=== PATIENT | male | born 1970 | race Caucasian/White ===

== ENCOUNTER 2017-01-03 10:31 | Emergency (ER) | payer OTHER ==
[2017-01-03 10:36] VITALS: RESP 16
[2017-01-03] MEDS ORDERED: ASPIRIN 81 MG PO STA (11:06)
[2017-01-03] MEDS ORDERED: NITROGLYCERIN OINT 1 INCH/GM PACKET TOPICAL STA (11:06)
--- NOTE | 2017-01-03 11:08 | ED ---
General Adult HPI - General Chief complaint: Chest Pain Stated complaint: Chest Pain Time Seen by Provider: 01/03/17 10:55 Source: patient, RN notes reviewed Mode of arrival: wheelchair Limitations: no limitations - History of Present Illness Initial comments: Patient is a pleasant 46-year-old male presenting to the emergency department chest discomfort. Onset was last night. Symptoms have been mostly constant however have started to improve his morning. Patient has soreness in his chest with radiation to left arm. Patient felt slightly short of breath and nauseated earlier. No diaphoresis. No history of similar symptoms previously. Onset was while at rest. - Related Data Home Medications Medication Instructions Recorded Confirmed Aspirin EC [Ecotrin] 325 mg PO ONCE PRN 01/03/17 01/03/17 Cyclobenzaprine [Flexeril] 10 mg PO TID PRN 01/03/17 01/03/17 Allergies Allergy/AdvReac Type Severity Reaction Status Date / Time No Known Allergies Allergy Verified 01/03/17 10:41 Review of Systems ROS Statement: Those systems with pertinent positive or pertinent negative responses have been documented in the HPI. ROS Other: All systems not noted in ROS Statement are negative. Constitutional: Denies: fever Eyes: Denies: eye pain ENT: Denies: ear pain Respiratory: Reports: dyspnea. Denies: cough Cardiovascular: Reports: chest pain Endocrine: Denies: fatigue Gastrointestinal: Reports: nausea. Denies: abdominal pain Genitourinary: Denies: dysuria Musculoskeletal: Denies: back pain Skin: Denies: rash Neurological: Denies: weakness Past Medical History Additional Past Medical History / Comment(s): lower back pain History of Any Multi-Drug Resistant Organisms: None Reported Past Surgical History: Orthopedic Surgery Additional Past Surgical History / Comment(s): right knee Past Psychological History: No Psychological Hx Reported Smoking Status: Current every day smoker Past Alcohol Use History: Rare Past Drug Use History: Marijuana General Exam Limitations: no limitations General appearance: alert, in no apparent distress Head exam: Present: atraumatic Eye exam: Present: normal appearance, PERRL ENT exam: Present: normal oropharynx Neck exam: Present: normal inspection Respiratory exam: Present: normal lung sounds bilaterally, chest wall tenderness (Mild left sternal border) Cardiovascular Exam: Present: regular rate, normal rhythm Expanded Peripheral pulses: 2+: Radial (R), Radial (L), Dorsalis Pedis (R), Dorsalis Pedis (L) GI/Abdominal exam: Present: soft. Absent: tenderness Extremities exam: Present: normal inspection. Absent: pedal edema, calf tenderness Neurological exam: Present: alert Psychiatric exam: Present: normal affect, normal mood Skin exam: Present: normal color Course Vital Signs 01/03/17 01/03/17 10:33 11:17 Temperature 97.4 F L Pulse Rate 73 Respiratory 16 16 Rate Blood Pressure 148/75 O2 Sat by Pulse 99 Oximetry EKG Findings - EKG Comments: EKG Findings:: Since bradycardia 58. MO 122. QRS 90. QT 410. QTc 402. Normal axis. Normal QRS. No acute ST change. Medical Decision Making - Medical Decision Making Patient reevaluated and resting comfortably in bed. Patient without complaints at this time. Patient updated on results and plan. Patient advised admission however refuses. Patient is made aware that heart attack has not been ruled out and could be at risk in the near future. Patient was recommended admission for further evaluation and consultation. Patient does demonstrate medical decision making and will leave AGAINST MEDICAL ADVICE. - Lab Data Result diagrams: 01/03/17 11:09 01/03/17 11:09 Lab Results 01/03/17 01/03/17 01/03/17 Range/Units 11:09 11:09 11:09 WBC 6.5 (3.8-10.6) k/uL RBC 4.83 (4.30-5.90) m/uL Hgb 15.5 (13.0-17.5) gm/dL Hct 48.6 (39.0-53.0) % MCV 100.5 H (80.0-100.0) fL MCH 32.0 (25.0-35.0) pg MCHC 31.9 (31.0-37.0) g/dL RDW 15.4 (11.5-15.5) % Plt Count 202 (150-450) k/uL Neutrophils % 60 % Lymphocytes % 30 % Monocytes % 5 % Eosinophils % 3 % Basophils % 1 % Neutrophils # 3.9 (1.3-7.7) k/uL Lymphocytes # 1.9 (1.0-4.8) k/uL Monocytes # 0.3 (0-1.0) k/uL Eosinophils # 0.2 (0-0.7) k/uL Basophils # 0.0 (0-0.2) k/uL Macrocytosis Slight PT (9.0-12.0) sec INR (<1.2) APTT (22.0-30.0) sec D-Dimer (<0.60) mg/L FEU Sodium 140 (137-145) mmol/L Potassium 4.4 (3.5-5.1) mmol/L Chloride 106 (98-107) mmol/L Carbon Dioxide 26 (22-30) mmol/L Anion Gap 8 mmol/L BUN 14 (9-20) mg/dL Creatinine 0.92 (0.66-1.25) mg/dL Est GFR (MDRD) Af Amer >60 (>60 ml/min/1.73 sqM) Est GFR (MDRD) Non-Af >60 (>60 ml/min/1.73 sqM) Glucose 101 H (74-99) mg/dL Calcium 9.7 (8.4-10.2) mg/dL Magnesium 1.7 (1.6-2.3) mg/dL Total Bilirubin 0.5 (0.2-1.3) mg/dL AST 18 (17-59) U/L ALT 28 (21-72) U/L Alkaline Phosphatase 69 (38-126) U/L Total Creatine Kinase 73 (55-170) U/L CK-MB (CK-2) 1.1 (0.0-2.4) ng/mL CK-MB (CK-2) Rel Index 1.5 Troponin I <0.012 (0.000-0.034) ng/mL Total Protein 6.7 (6.3-8.2) g/dL Albumin 4.3 (3.5-5.0) g/dL 01/03/17 Range/Units 11:09 WBC (3.8-10.6) k/uL RBC (4.30-5.90) m/uL Hgb (13.0-17.5) gm/dL Hct (39.0-53.0) % MCV (80.0-100.0) fL MCH (25.0-35.0) pg MCHC (31.0-37.0) g/dL RDW (11.5-15.5) % Plt Count (150-450) k/uL Neutrophils % % Lymphocytes % % Monocytes % % Eosinophils % % Basophils % % Neutrophils # (1.3-7.7) k/uL Lymphocytes # (1.0-4.8) k/uL Monocytes # (0-1.0) k/uL Eosinophils # (0-0.7) k/uL Basophils # (0-0.2) k/uL Macrocytosis PT 10.6 (9.0-12.0) sec INR 1.1 (<1.2) APTT 25.9 (22.0-30.0) sec D-Dimer <0.17 (<0.60) mg/L FEU Sodium (137-145) mmol/L Potassium (3.5-5.1) mmol/L Chloride (98-107) mmol/L Carbon Dioxide (22-30) mmol/L Anion Gap mmol/L BUN (9-20) mg/dL Creatinine (0.66-1.25) mg/dL Est GFR (MDRD) Af Amer (>60 ml/min/1.73 sqM) Est GFR (MDRD) Non-Af (>60 ml/min/1.73 sqM) Glucose (74-99) mg/dL Calcium (8.4-10.2) mg/dL Magnesium (1.6-2.3) mg/dL Total Bilirubin (0.2-1.3) mg/dL AST (17-59) U/L ALT (21-72) U/L Alkaline Phosphatase (38-126) U/L Total Creatine Kinase (55-170) U/L CK-MB (CK-2) (0.0-2.4) ng/mL CK-MB (CK-2) Rel Index Troponin I (0.000-0.034) ng/mL Total Protein (6.3-8.2) g/dL Albumin (3.5-5.0) g/dL - Radiology Data Radiology results: image reviewed (Chest x-ray shows no acute process.) Disposition Clinical Impression: Chest pain Disposition: Left Against Medical Advice Condition: Stable Instructions: Chest Pain (ED) Additional Instructions: Aspirin daily until follow-up. Please follow-up to primary care physician in the next day or 2 for reevaluation. Have primary care physician consider stress testing or cardiology evaluation. Return for increased pain, difficult in breathing, worsening or changing symptoms or other concerns. Referrals: Fabien Mendieta DO [Primary Care Provider] - 1-2 days Time of Disposition: 12:53
[2017-01-03 11:25] LABS: Basophils % (A) 1 %; CH 34.4; CHCM 34.5; Eosinophils # (A) 0.2 k/uL (0-0.7); Eosinophils % (A) 3 %; HCT 48.6 % (39.0-53.0); HDW 2.38; HGB 15.5 gm/dL (13.0-17.5); Luc # (Auto) 0.07; Luc % (Auto) 1; Lymphocytes # (A) 1.9 k/uL (1.0-4.8); Lymphocytes % (A) 30 %; MCHC 31.9 g/dL (31.0-37.0); MCV 100.5 fL (80.0-100.0); Macrocytosis Slight; Mean Platelet Volume 7.6; Monocytes # (A) 0.3 k/uL (0-1.0); Monocytes % (A) 5 %; Neutrophils # (A) 3.9 k/uL (1.3-7.7); Neutrophils % (A) 60 %; RBC 4.83 m/uL (4.30-5.90); RDW 15.4 % (11.5-15.5); WBC 6.5 k/uL (3.8-10.6); WBC (Perox) 6.38
[2017-01-03 11:36] LABS: ALT 28 U/L (21-72); AST 18 U/L (17-59); Alkaline Phosphatase 69 U/L (38-126); Anion Gap 8 mmol/L; Blood Urea Nitrogen 14 mg/dL (9-20); Calcium 9.7 mg/dL (8.4-10.2); Carbon Dioxide 26 mmol/L (22-30); Chloride 106 mmol/L (98-107); Glucose 101 mg/dL (74-99); Magnesium 1.7 mg/dL (1.6-2.3); Non-African American GFR(MDRD) >60 (>60 ml/min/1.73 sqM); Potassium 4.4 mmol/L (3.5-5.1); Sodium 140 mmol/L (137-145); Total Bilirubin 0.5 mg/dL (0.2-1.3); Total Protein 6.7 g/dL (6.3-8.2)
[2017-01-03 11:48] LABS: Creatine Kinase 73 U/L (55-170)
[2017-01-03 12:01] LABS: Creatine Kinase MB 1.1 ng/mL (0.0-2.4); Troponin I <0.012 ng/mL (0.000-0.034)
--- NOTE | 2017-01-03 12:04 | XR ---
EXAMINATION TYPE: XR chest 2V DATE OF EXAM: 01/03/2017 COMPARISON: NONE HISTORY: Chest pain and shortness of breath. TECHNIQUE: Frontal and lateral views of the chest are obtained. FINDINGS: Underlying emphysematous change is felt present. There is no focal air space opacity, pleu ral effusion, or pneumothorax seen. The cardiac silhouette size is within normal limits. The osseo us structures are intact. IMPRESSION: Suspect chronic emphysematous change without acute pulmonary process.
[2017-01-03 12:08] LABS: INR 1.1 (<1.2); Partial Thromboplastin Time 25.9 sec (22.0-30.0); Prothrombin Time 10.6 sec (9.0-12.0)
[2017-01-03 13:10] VITALS: BP 107/81; PULSE 60; TEMP 98.4
== END 2017-01-03 13:11 | disposition left against medical advice (07) ==
LOC: EC 10:31
DX: R07.89 Other chest pain (principal); R06.02 Shortness of breath; R11.0 Nausea; F17.200 Nicotine dependence, unspecified, uncomplicated; Z53.29 Procedure and treatment not carried out because of patient's decision for other reasons
CPT/HCPCS: 36415; 71020; 80053; 82550; 82553; 83735; 84484; 85025; 85379; 85610; 85730; 93005; 99285

== ENCOUNTER 2017-12-24 04:00 | Emergency (ER) | payer OTHER ==
[2017-12-24 04:10] VITALS: BP 124/62; PULSE 92; RESP 20; TEMP 97.4
--- NOTE | 2017-12-24 04:22 | ED ---
Back Pain HPI - General Chief Complaint: Back Pain/Injury Stated Complaint: Back Pain Time Seen by Provider: 12/24/17 04:21 Source: patient, family Limitations: no limitations - History of Present Illness Initial Comments: Javon is a 47-year-old male with a history of chronic back pain who is currently be following by neurosurgery for an L4-L5 bulging disc. Patient reports that he just saw the neurosurgeon last week in his posterior call Monday for planned surgery. Patient states that today was his birthday, he got up early and work, he then had a birthday green party. Patient states that he has overexerted himself and is experiencing a severe muscle spasm from his left ribs down to his left lumbar spine. Patient reports she's experienced a significant past and just needs some pain medications for. Patient denies any recent trauma, recent injury, he denies any history of cancers, denies any history of IV drug use, denies any fevers or chills, denies any focal neurologic deficits, denies any weakness in his lower surety's, denies any bowel or bladder incontinence or retention. Patient reports that the pain started approximately half hour prior to arrival in the ER. He reports he felt like his entire body locked up so his friend put him in the bed of his truck and drove him to the ER for evaluation. The patient admits that he was drinking alcohol earlier in the evening. - Related Data Home Medications Medication Instructions Recorded Confirmed Aspirin EC [Ecotrin] 325 mg PO ONCE PRN 01/03/17 12/24/17 Cyclobenzaprine [Flexeril] 10 mg PO TID PRN 01/03/17 12/24/17 Gabapentin [Neurontin] 300 mg PO TID 12/24/17 12/24/17 Naproxen [Naprosyn] 250 mg PO BID 12/24/17 12/24/17 Allergies Allergy/AdvReac Type Severity Reaction Status Date / Time No Known Allergies Allergy Verified 12/24/17 04:10 Review of Systems ROS Statement: Those systems with pertinent positive or pertinent negative responses have been documented in the HPI. ROS Other: All systems not noted in ROS Statement are negative. Past Medical History Additional Past Medical History / Comment(s): lower back pain History of Any Multi-Drug Resistant Organisms: None Reported Past Surgical History: Orthopedic Surgery Additional Past Surgical History / Comment(s): right knee Past Psychological History: No Psychological Hx Reported Smoking Status: Current every day smoker Past Alcohol Use History: Rare Past Drug Use History: Marijuana General Exam - General Exam Comments Initial Comments: Physical Exam GENERAL: Disheveled, male, appears older than stated age Patient has his shirt removed from one arm and his back is exposed, he standing at the bedside with his cigarettes on the bed, hands on the bed in a bent over position HENT: Normocephalic, Atraumatic. EYES: PERRL, EOMI PULMONARY: Unlabored respirations. CARDIOVASCULAR: RRR ABDOMEN: Nondistended SKIN: Skin is clear with no lesions or rashes and otherwise unremarkable. : Deferred NEUROLOGIC: Patient is alert and oriented x3. Moving all extremities spontaneously Normal gait MUSCULOSKELETAL: Normal extremities with full range of motion. PSYCHIATRIC: Intoxicated, agitated Limitations: no limitations Limitations: no limitations Course Vital Signs 12/24/17 04:01 Temperature 97.4 F L Pulse Rate 92 Respiratory 20 Rate Blood Pressure 124/62 O2 Sat by Pulse 97 Oximetry Medical Decision Making - Medical Decision Making The patient was seen and evaluated, history was obtained from the patient Patient was standing in the room, upon my entry patient states that he is in severe pain and needs something for the pain, I advised the patient that I understand he is in pain but he needed to answer some questions prior to getting medications Patient admitted to drinking alcohol, was somewhat agitated, states that he overexerted himself and is having a significant muscle spasm No red flags for back pain Repeatedly interrupting me reports requesting medications for his back pain during the interview. I repeatedly advised the patient that I cannot leave the room to order an pain medications until I determine if there is further workup indicated Advised the patient that I'll give him shots of muscle relaxer and anti- inflammatories, patient became agitated behaving cursing at me. Patient began putting on a shirt and stating that he is "glad people here understand everything that people are going to run a daily basis" and expressed frustration that I do not understand what he was experiencing. I advised the patient that I was ordering him appropriate treatment the patient was agitated and walked out of the emergency department Disposition Clinical Impression: Strain of lumbar region Disposition: Left Against Medical Advice Instructions: Acute Low Back Pain (ED) Is patient prescribed a controlled substance at d/c from ED?: No Referrals: Fabien Mendieta DO [Primary Care Provider] - 1-2 days
== END 2017-12-24 04:50 | disposition left against medical advice (07) ==
LOC: EC 04:00
DX: S39.012A Strain of muscle, fascia and tendon of lower back, initial encounter (principal); F17.200 Nicotine dependence, unspecified, uncomplicated; Z79.1 Long term (current) use of non-steroidal anti-inflammatories (NSAID); Z79.899 Other long term (current) drug therapy; Z98.890 Other specified postprocedural states; X50.9XXA Other and unspecified overexertion or strenuous movements or postures, initial encounter
CPT/HCPCS: 99282

== ENCOUNTER → 2020-07-30 | Outpatient (CLI) | payer OTHER ==
--- NOTE | 2020-07-30 14:37 | XR ---
Cervical spine HISTORY: Degenerative disc disease, pain 4 views of the cervical spine Cervical vertebral bodies show near anatomic alignment, is loss of disc height at C5-6. Cervical vert ebral bodies show preserved height and bone mineralization. Prevertebral soft tissues are normal. No significant foraminal encroachment. Some mild facet arthropathy changes present. IMPRESSION: Degenerative disc disease.
--- NOTE | 2020-07-30 14:41 | XR ---
Lumbosacral spine HISTORY: Degenerative disc disease, pain 5 views of lumbosacral spine, no comparisons Patient is status post posterior lumbar fusion at L4-5 with intervertebral spacing block. Lumbar vert ebral bodies show preserved height and alignment. There is multilevel spondylosis. Loss of disc heigh t is present L5-S1, L1 to. Sclerosis in the posterior elements is consistent with facet arthropathy. There is no evident spondylolysis. IMPRESSION: Postop changes, degenerative disc disease and facet arthropathy.
--- NOTE | 2020-07-30 14:44 | XR ---
Thoracic spine HISTORY: Chronic pain views of the thoracic spine correlated to cervical and lumbar spine same date There is a slight spinal curvature. There is multilevel spondylosis. Loss of disc height is present a t intervertebral levels of the midthoracic spine. Lumbar vertebral bodies show preserved height and m ineralization. IMPRESSION: Degenerative disc disease, slight spinal curvature.
== END | disposition home or self-care (01) ==
LOC: RADXRYALE 11:26
PROVIDERS: ATTEND Physician Assistant
DX: M51.34 Other intervertebral disc degeneration, thoracic region (principal); M43.8X4 Other specified deforming dorsopathies, thoracic region; M50.30 Other cervical disc degeneration, unspecified cervical region; M51.36 Other intervertebral disc degeneration, lumbar region; M47.816 Spondylosis without myelopathy or radiculopathy, lumbar region
CPT/HCPCS: 72050; 72070; 72110

== ENCOUNTER → 2021-12-01 | Outpatient (CLI) | payer OTHER ==
[2021-12-01 09:28] VITALS: BP 118/73; PULSE 69; RESP 18
--- NOTE | 2021-12-01 15:10 | P.PAINPG ---
PQRS Measure Charge Sheet Comment: HISTORY OF PRESENT ILLNESS: 50 yr old male as a referral from Dr. Grey presents today w severe and chronic LBP secondary to for evaluation. Pt states his pain level is currently at 5/10 in intensity, constant, localized in lower lumbar spine, burning/achy in character w radiation towards BLEs. Pain is provoked w PT x 6 wks in 2021 which provoked pain, topicals are ineffective, activities provoke pain. Pain is palliated w massage integrated w PT, heat, home exercise regimen, +cannabis, repositioning and rest. PMH: OA PSH: R Knee Arthroscopy, L4-5 posterior fusion SH: Daily tobacco use, No ETOH abuse, +Cannabis use. FH: Non contributory All: NKDA Meds: See list REVIEW OF ORGAN SYSTEMS: CONSTITUTIONAL: No fevers or chills. No recent weight loss. NEUROLOGICAL: + numbness and tingling along the distal extremities. No seizure disorders or headaches. MUSCULOSKELETAL: + pain PSYCHIATRIC: Denies current depression or suicidal thoughts. Physical Examinations : Constitutional : Cooperative , not in acute distress . Neurologic : Cranial nerve II to XII intact. No focal neurological deficits. Psychiatric : alert & oriented x 3. Matching mood & appropriate affect. Judgment & insight intact. Musculoskeletal : Cervical Spine Motor strength in the deltoid and biceps: Normal right side. Normal Left side Motor strength biceps and the wrist extensors: Normal right side . Normal left side Motor strength in the triceps muscle: Normal right side. Normal left side Deep tendon reflexes: Normal at the biceps. Normal at Brachioradialis. Normal at triceps Vertebral body tenderness to deep palpation over Cervical facet loading test: positive bilaterally Spurling test: positive bilaterally Neck distraction test: positive bilaterally Segun sign: positive bilaterally Lumbar spine Motor strength lower extremities ,thigh and legs 5/5 Right side , 5/5 Left side Deep tendon reflexes : Normal Knee Jerk. Normal Ankle Jerk Vertebral body tenderness over L5 Lumbar facet Loading Test: positive Right / positive Left Range of motion of the lumbar spine Flexion 30 degrees, extension 10 degrees Straight Leg Raise test: Left/ Right positive at degree Dolores test: positive right / positive left. Severe tenderness over the Sacroiliac joint on the Right / Left sides Gaenslen test: positive bilaterally Seated flexion test: positive bilaterally. Sacral spine : Severe tenderness over the Sacroiliac joint: right side / left side Range of motion: Flexion of the lumbar spine <60 degrees Range of motion: Extension of the lumbar spine <20 degrees Gaenslen's Test positive Abraham's Test positive Dolores test: positive right side / left side Thigh Thrust Test Sacral Thrust Test Imaging: MRI of the lumbar spine from 11/05/20 reviewed Assessment/ Plan : Lumbar DDD, lumbar spondylosis Recommendation of WAGNER L5-S1. May need a series of injections, up to 3 within a 6 mo period, for optimal pain relief. Risks, benefits of procedure discussed and patient verbalized understanding. Denies aspirin or anti- coagulant use or medical history of diabetes. Protocol for discontinuation/ continuation of medications samina procedure discussed. Pt was disinterested in ESIs stating "My previous doctor told me not to get any more." Discussed RFA but pt replied "Suzan already had my nerves burned and Im still in pain. When discussing placement of an IPG, pt interrupted me asking "that's the morphine pump, right?" but was dismayed it was not. Discussed integrative pain mgmt options and also clarified that he would not be a narcotic candidate as he will test positive for Cannabis, which pt became angry, abruptly leaving exam room and yelling in the hallway "why don't you just put a nail in my coffin" All questions answered. I have spent greater than 30 minutes on patient care today. Dr Mejia was available by phone for the evaluation of this patient. The time was used to review the medical records including relevant urine studies and Prescription history (MAPs), review of the available imaging, evaluation and examination of the patient, coordination of care with the medical staff and if applicable referring physicians, as well as creation of the medical record PQRS Narrative: Smoking Status Current every day smoker Home Medications: Ambulatory Orders Aspirin EC [Ecotrin] 325 mg PO ONCE PRN 01/03/17 Cyclobenzaprine [Flexeril] 10 mg PO TID PRN 01/03/17 Gabapentin [Neurontin] 300 mg PO TID 12/24/17 Naproxen [Naprosyn] 250 mg PO BID 12/24/17 Controlled Substance Measures - Controlled Substance Measures Is patient prescribed a controlled substance at discharge?: No
== END | disposition home or self-care (01) ==
LOC: PNWHC3 08:46
PROVIDERS: ATTEND Specialist
DX: M47.896 Other spondylosis, lumbar region (principal); M51.36 Other intervertebral disc degeneration, lumbar region
CPT/HCPCS: 99211

== ENCOUNTER → 2024-07-05 | Outpatient (CLI) | payer OTHER ==
--- NOTE | 2024-07-05 18:02 | MR ---
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 COMPARISONS: The thoracic lumbosacral spine radiographs 07/30/2020 TECHNIQUE: Multi planar, multi sequence imaging was performed utilizing: T1-weighted, T2-weighted, a nd turbo inversion recovery imaging of the lumbar spine. The patient was not given contrast. FINDINGS: Postsurgical changes from bilateral pedicular screws and rods with intervertebral disc hard falcon at L4-L5. This creates susceptibility artifact which limits evaluation. The lumbar vertebral zan dies do have preserved heights and alignment. Multilevel disc desiccation is present. No abnormal ST IR signal identified. The conus medullaris and the distal spinal cord do appear unremarkable with reg ards to their signal intensity and morphology. T12-L1: No significant disc pathology is identified. The spinal canal and neural foramen are patent L1-L2: Minimal diffuse disc bulge identified. The spinal canal and neural foramen are patent. L2-L3: Mild diffuse disc bulge with ligamentum flavum buckling resulting in minimal central canal st enosis. Bilateral facet arthropathy. Minimal bilateral neural foraminal stenosis. L3-L4: Broad-based disc bulge with annular fissure. Ligamentum flavum buckling. There is mild centra l canal stenosis. Minimal left and mild right neural foraminal stenosis. L4-L5: Postsurgical changes. No significant central canal or neural foraminal stenosis. L5-S1: The intervertebral disc appears round on its contour posteriorly without significant mass eff ect upon the thecal sac. Facet joints are enlarged. Neural canals do remain patent. Other significant findings: None. IMPRESSION: Postsurgical changes from posterior fusion L4-L5. No definitive evidence for disc herniation or signi ficant spinal canal stenosis. Mild multilevel degenerative disc disease and facet arthropathy as desc ribed above. [facility], , 07/05/2024 6:00 PM
== END | disposition home or self-care (01) ==
LOC: RADMRIMAIN 15:12
PROVIDERS: ATTEND Anesthesiology Pain Medicine
DX: M51.16 Intervertebral disc disorders with radiculopathy, lumbar region (principal); M47.27 Other spondylosis with radiculopathy, lumbosacral region; M46.1 Sacroiliitis, not elsewhere classified; Z98.1 Arthrodesis status
CPT/HCPCS: 72148